=== PATIENT | male | born 1990 | race Caucasian/White ===

== ENCOUNTER 2019-07-18 20:40 | Emergency (ER) | payer OTHER ==
[~2019-07-18] VITALS: Ht 180.3 cm; Wt 108.9 kg
[2019-07-18 20:49] VITALS: Ht 180.3 cm; Wt 108.9 kg
[2019-07-19 00:45] VITALS: BP 108/60
[2019-07-19 01:39] LABS: UA SPECIFIC GRAVITY <=1.005 (1.005-1.035); microscopic required? YES; urine erythrocyte TRACE (NEGATIVE)
== END 2019-07-19 00:58 | disposition home or self-care (01) ==
LOC: ED 20:40
PROVIDERS: Specialist
DX: N39.0 Urinary tract infection, site not specified (principal); M79.10 Myalgia, unspecified site; Z86.73 Personal history of transient ischemic attack (TIA), and cerebral infarction without residual deficits
CPT/HCPCS: 87804; J0696; J1885